=== PATIENT | female | born 1970 | race Asian ===

== ENCOUNTER 2018-06-16 07:56 | Day surgery (SDC) | payer OTHER ==
[2018-06-16] MEDS: ALPRAZOLAM 0.5 MG TAB PO (10:19)
[2018-06-16] MEDS: SOD CHLORIDE 0.9% 1,000 ML IV (10:20)
[2018-06-16] MEDS ORDERED: FENTAnyl 50 MCG/ML VIAL (11:10)
[2018-06-16] MEDS ORDERED: MIDAZOLAM 1 MG/ML 2 ML INJ (11:10)
[2018-06-16 11:12] LABS: INR 0.85; PROTIME 11.7 Sec (11.9-14.9); PT RATIO 0.9
[2018-06-16] MEDS ORDERED: LIDOCAINE 1% (MPF) 5 ML VIAL (12:03)
[2018-06-16] MEDS: hydrALAzine 20 MG INJ (12:25)
[2018-06-16] MEDS ORDERED: hydrALAzine 20 MG INJ IV (13:00)
[2018-06-16] MEDS ORDERED: HYDROCODONE/APAP (5/325) TAB PO (13:30)
== END 2018-06-16 15:57 | disposition home or self-care (01) ==
LOC: SDS 07:56
DX: I12.9 Hypertensive chronic kidney disease with stage 1 through stage 4 chronic kidney disease, or unspecified chronic kidney disease (principal); N18.9 Chronic kidney disease, unspecified
CPT/HCPCS: 50200; 77012; 85610; 85730